=== PATIENT | male | born 1950 | race Caucasian/White ===

== ENCOUNTER 2022-02-25 14:58 | Emergency (ER) | payer OTHER, BC ==
[2022-02-25 16:04] VITALS: BP 115/77; PULSE 89; RESP 17; TEMP 98.3; BMI 20.7
[2022-02-25 19:06] LABS: BASO % 1.2 % (0-2.0); EOS % 1.3 % (0-4.5); HEMATOCRIT 40.9 % (35.4-49); LYMPH % 24.3 % (8-40); MCH 37.3 pg (25.7-33.7); MCHC 34.2 g/dl (32.0-35.9); MEAN CELL VOLUME 109.3 fl (80-96); MEAN PLT VOLUME 9.1 fl (7.5-11.1); MONO % 8.3 % (3.8-10.2); NEUT % 64.9 % (42.8-82.8); PLATELET COUNT 94 10^3/uL (134-434); RBC 3.74 M/mm3 (4.00-5.60); RDW 13.8 % (11.9-15.9); WHITE BLOOD COUNT 4.2 K/mm3 (4.0-10.0)
[2022-02-25 19:10] LABS: INR 0.97 (0.83-1.09); PROTHROMBIN TIME (PATIENT) 11.2 SEC (9.7-13.0)
[2022-02-25 19:13] LABS: ACTIVATED PTT 28.1 SECONDS (25.2-36.5)
[2022-02-25 19:25] LABS: ALBUMIN 3.9 g/dl (3.4-5.0); BLOOD UREA NITROGEN 13.7 mg/dL (7-18); CALCIUM 9.4 mg/dL (8.5-10.1); MAGNESIUM 1.9 mg/dL (1.8-2.4)
[2022-02-25 19:29] LABS: CREATININE 0.5 mg/dL (0.55-1.3)
[2022-02-25 19:30] LABS: BILIRUBIN,TOTAL 2.3 mg/dL (0.2-1); TOT PROT 6.8 g/dl (6.4-8.2)
[2022-02-25 20:46] LABS: ANISOCYTOSIS 1+; MACROCYTOSIS 2+
== END 2022-02-25 21:35 | disposition left against medical advice (07) ==
LOC: JER 14:58
DX: S09.90XA Unspecified injury of head, initial encounter (principal); W19.XXXA Unspecified fall, initial encounter
CPT/HCPCS: 36415; 70450-TC; 71045-TC-FY; 72125-TC; 80053; 83735; 84484; 85025; 85610; 85730; 93005; 93010; 99285-25

== ENCOUNTER 2022-03-01 15:19 | Inpatient (IN) | payer OTHER, BC ==
[2022-03-01 22:59] LABS: BASO % 1.4 % (0-2.0); EOS % 1.2 % (0-4.5); HEMATOCRIT 38.4 % (35.4-49); HEMOGLOBIN 13.3 GM/dL (11.7-16.9); LYMPH % 23.7 % (8-40); MCH 37.5 pg (25.7-33.7); MCHC 34.7 g/dl (32.0-35.9); MEAN CELL VOLUME 108.1 fl (80-96); MEAN PLT VOLUME 9.1 fl (7.5-11.1); MONO % 10.4 % (3.8-10.2); NEUT % 63.3 % (42.8-82.8); PLATELET COUNT 100 10^3/uL (134-434); RBC 3.55 M/mm3 (4.00-5.60); RDW 13.4 % (11.9-15.9); WHITE BLOOD COUNT 3.5 K/mm3 (4.0-10.0)
[2022-03-01 23:19] LABS: ANISOCYTOSIS 2+; MACROCYTOSIS 2+
[2022-03-01 23:24] LABS: CALCIUM 8.4 mg/dL (8.5-10.1)
[2022-03-01 23:25] LABS: ALBUMIN 3.5 g/dl (3.4-5.0); BLOOD UREA NITROGEN 12.8 mg/dL (7-18); MAGNESIUM 1.7 mg/dL (1.8-2.4)
[2022-03-01 23:28] LABS: CREATININE 0.4 mg/dL (0.55-1.3)
[2022-03-01 23:29] LABS: BILIRUBIN,TOTAL 1.9 mg/dL (0.2-1); TOT PROT 6.2 g/dl (6.4-8.2)
[2022-03-02] MEDS ORDERED: SODIUM CHLORIDE 1,000 ML IV SCH (00:45)
[2022-03-02] MEDS ORDERED: FOLIC ACID 1 MG TABLET (FP) PO ONE (01:40)
[2022-03-02] MEDS ORDERED: LORazepam 2 MG/ML SDV VIAL IVPUSH PRN (01:40)
[2022-03-02] MEDS ORDERED: MAGNESIUM 2GM/50ML STERILE WATER IVPB IVPB ONE (01:41)
[2022-03-02] MEDS ORDERED: POTASSIUM PHOSPHATE 30 MM in DEXTROSE 5%-WATER - 500 ML IVPB ONE (01:42)
[2022-03-02 01:51] LABS: EPI CELLS 3 /uL (0-25.1); HYALINE CASTS 2 /uL (0-3.1); PH,URINE 5.5 (5.0-8.0); URINE APPEARANCE TURBID; URINE BACTERIA 1437 /uL (0-1359); URINE BILIRUBIN 2+ (NEGATIVE); URINE COLOR ORANGE; URINE GLUCOSE (UA) NEGATIVE (NEGATIVE); URINE KETONE 2+ (NEGATIVE); URINE LEUK ESTERASE 1+ (NEGATIVE); URINE NITRITE POSITIVE (NEGATIVE); URINE PROTEIN 1+ (NEGATIVE); URINE WBC 304 /uL (0-25.8)
[2022-03-02 04:55] LABS: URINE RBC 175.8 /uL (0-23.9)
[2022-03-02] MEDS ORDERED: MAGNESIUM SULFATE IN WATER 2 GM/50 ML IVPB IVPB ONE (05:11)
[2022-03-02] MEDS ORDERED: FOLIC ACID 1 MG TABLET (FP) ONE (05:11)
[2022-03-02 05:18] LABS: YEAST NONE SEEN (NEGATIVE)
[2022-03-02 07:14] LABS: BASO % 1.1 % (0-2.0); EOS % 0.6 % (0-4.5); HEMATOCRIT 38.9 % (35.4-49); HEMOGLOBIN 13.4 GM/dL (11.7-16.9); LYMPH % 23.1 % (8-40); MCH 37.4 pg (25.7-33.7); MCHC 34.4 g/dl (32.0-35.9); MEAN CELL VOLUME 108.9 fl (80-96); NEUT % 63.2 % (42.8-82.8); PLATELET COUNT 101 10^3/uL (134-434); RBC 3.57 M/mm3 (4.00-5.60); RDW 13.5 % (11.9-15.9); WHITE BLOOD COUNT 4.2 K/mm3 (4.0-10.0)
[2022-03-02 07:23] LABS: CALCIUM 8.5 mg/dL (8.5-10.1)
[2022-03-02 07:24] LABS: ALBUMIN 3.4 g/dl (3.4-5.0); BLOOD UREA NITROGEN 13.3 mg/dL (7-18); MAGNESIUM 2.3 mg/dL (1.8-2.4)
[2022-03-02 07:27] LABS: CREATININE 0.5 mg/dL (0.55-1.3); PHOSPHOROUS 3.2 mg/dL (2.5-4.9)
[2022-03-02 07:28] LABS: BILIRUBIN,TOTAL 2.2 mg/dL (0.2-1)
[2022-03-02 07:29] LABS: TOT PROT 5.9 g/dl (6.4-8.2)
[2022-03-02] MEDS ORDERED: POTASSIUM CHLORIDE TABS 20 MEQ TABLET.ER (FP) PO ONE ×2 (07:32→08:08)
[2022-03-02 08:50] LABS: BILIRUBIN,DIRECT 0.9 mg/dL (0.0-0.2)
[2022-03-02] MEDS ORDERED: THIAMINE HCL 200 MG/2 ML VIAL IVPB SCH (10:00)
[2022-03-02] MEDS ORDERED: CEFTRIAXONE 1 GM in DEXTROSE 5%-WATER - 50 ML IVPB SCH (10:00)
[2022-03-02] MEDS: ENOXAPARIN NA (PORCINE) 40 MG/0.4 ML DISP.SYRIN SQ SCH (10:40)
[2022-03-02] MEDS: FOLIC ACID INJECTION - 1 MG, THIAMINE HCL 100 MG, MULTIVIT INJECTION ADULT 10 ML in SOD... IVPB ONE ×2 (10:41→10:42)
[2022-03-02] MEDS: TAMSULOSIN HCL 0.4 MG CAP PO SCH (10:43)
[2022-03-02] MEDS: MULTIVITAMINS (DAILY MVI) TABLET (FP) PO SCH (10:44)
[2022-03-03] MEDS: TAMSULOSIN HCL 0.4 MG CAP PO SCH (08:59)
[2022-03-03 09:05] LABS: EOS % 2.5 % (0-4.5); HEMATOCRIT 41.6 % (35.4-49); HEMOGLOBIN 14.2 GM/dL (11.7-16.9); LYMPH % 32.1 % (8-40); MCH 37.1 pg (25.7-33.7); MCHC 34.1 g/dl (32.0-35.9); MEAN PLT VOLUME 10.2 fl (7.5-11.1); NEUT % 52.4 % (42.8-82.8); PLATELET COUNT 94 10^3/uL (134-434); RBC 3.81 M/mm3 (4.00-5.60); RDW 13.2 % (11.9-15.9)
[2022-03-03] MEDS: ENOXAPARIN NA (PORCINE) 40 MG/0.4 ML DISP.SYRIN SQ SCH (09:12)
[2022-03-03] MEDS: THIAMINE HCL 100 MG TABLET (FP) PO SCH (09:12)
[2022-03-03] MEDS: MULTIVITAMINS (DAILY MVI) TABLET (FP) PO SCH (09:12)
[2022-03-03 09:26] LABS: CALCIUM 9.1 mg/dL (8.5-10.1)
[2022-03-03 09:27] LABS: ALBUMIN 3.6 g/dl (3.4-5.0); BLOOD UREA NITROGEN 11.5 mg/dL (7-18)
[2022-03-03 09:30] LABS: CREATININE 0.6 mg/dL (0.55-1.3); PHOSPHOROUS 2.9 mg/dL (2.5-4.9)
[2022-03-03 09:32] LABS: TOT PROT 6.3 g/dl (6.4-8.2)
[2022-03-03] MEDS ORDERED: TAMSULOSIN HCL 0.4 MG CAP PO ONE (13:38)
[2022-03-03] MEDS: SODIUM CHLORIDE 1,000 ML IV SCH ×2 (14:09→21:44)
[2022-03-03] MEDS ORDERED: POTASSIUM CHLORIDE TABS 20 MEQ TABLET.ER (FP) PO ONE (16:32)
[2022-03-04] MEDS ORDERED: TRIMETHOBENZAMIDE HCL 200MG/2ML INJ IM ONE (06:21)
[2022-03-04] MEDS: TAMSULOSIN HCL 0.4 MG CAP PO SCH (07:58)
[2022-03-04] MEDS: ENOXAPARIN NA (PORCINE) 40 MG/0.4 ML DISP.SYRIN SQ SCH (10:57)
[2022-03-04] MEDS: MULTIVITAMINS (DAILY MVI) TABLET (FP) PO SCH (11:55)
[2022-03-04] MEDS: THIAMINE HCL 100 MG TABLET (FP) PO SCH (11:55)
[2022-03-04 11:58] LABS: BASO % 0.8 % (0-2.0); EOS % 1.4 % (0-4.5); HEMATOCRIT 38.1 % (35.4-49); HEMOGLOBIN 13.1 GM/dL (11.7-16.9); LYMPH % 21.2 % (8-40); MCH 37.6 pg (25.7-33.7); MCHC 34.4 g/dl (32.0-35.9); MEAN CELL VOLUME 109.3 fl (80-96); MONO % 11.7 % (3.8-10.2); NEUT % 64.9 % (42.8-82.8); PLATELET COUNT 87 10^3/uL (134-434); RBC 3.48 M/mm3 (4.00-5.60); RDW 13.2 % (11.9-15.9); WHITE BLOOD COUNT 4.2 K/mm3 (4.0-10.0)
[2022-03-04 12:39] LABS: ALBUMIN 3.6 g/dl (3.4-5.0); BLOOD UREA NITROGEN 7.1 mg/dL (7-18); CALCIUM 8.8 mg/dL (8.5-10.1); MAGNESIUM 1.9 mg/dL (1.8-2.4)
[2022-03-04 12:43] LABS: BILIRUBIN,TOTAL 1.4 mg/dL (0.2-1); CREATININE 0.5 mg/dL (0.55-1.3); PHOSPHOROUS 2.8 mg/dL (2.5-4.9); TOT PROT 6.2 g/dl (6.4-8.2)
[2022-03-05] MEDS: TAMSULOSIN HCL 0.4 MG CAP PO SCH (08:30)
[2022-03-05] MEDS: MULTIVITAMINS (DAILY MVI) TABLET (FP) PO SCH (09:17)
[2022-03-05] MEDS: THIAMINE HCL 100 MG TABLET (FP) PO SCH (09:17)
[2022-03-05] MEDS: ENOXAPARIN NA (PORCINE) 40 MG/0.4 ML DISP.SYRIN SQ SCH (09:21)
[2022-03-05 12:38] VITALS: BMI 19.0
[2022-03-06 09:01] LABS: HEMATOCRIT 39.2 % (35.4-49); HEMOGLOBIN 13.2 GM/dL (11.7-16.9); MCH 36.7 pg (25.7-33.7); MCHC 33.7 g/dl (32.0-35.9); MEAN PLT VOLUME 10.1 fl (7.5-11.1); PLATELET COUNT 116 10^3/uL (134-434); RBC 3.59 M/mm3 (4.00-5.60); RDW 13.4 % (11.9-15.9); WHITE BLOOD COUNT 6.5 K/mm3 (4.0-10.0)
[2022-03-06] MEDS: MULTIVITAMINS (DAILY MVI) TABLET (FP) PO SCH (09:03)
[2022-03-06] MEDS: THIAMINE HCL 100 MG TABLET (FP) PO SCH (09:03)
[2022-03-06] MEDS: TAMSULOSIN HCL 0.4 MG CAP PO SCH (09:03)
[2022-03-06] MEDS: ENOXAPARIN NA (PORCINE) 40 MG/0.4 ML DISP.SYRIN SQ SCH (09:49)
[2022-03-06 10:49] LABS: ANISOCYTOSIS 2+; MACROCYTOSIS 2+
[2022-03-07 09:51] LABS: BASO % 0.9 % (0-2.0); EOS % 3.6 % (0-4.5); HEMATOCRIT 38.4 % (35.4-49); HEMOGLOBIN 13.5 GM/dL (11.7-16.9); LYMPH % 13.7 % (8-40); MCH 38.4 pg (25.7-33.7); MCHC 35.2 g/dl (32.0-35.9); MEAN CELL VOLUME 108.8 fl (80-96); MEAN PLT VOLUME 10.4 fl (7.5-11.1); MONO % 10.5 % (3.8-10.2); NEUT % 71.3 % (42.8-82.8); PLATELET COUNT 127 10^3/uL (134-434); RBC 3.53 M/mm3 (4.00-5.60); RDW 13.4 % (11.9-15.9); WHITE BLOOD COUNT 7.2 K/mm3 (4.0-10.0)
[2022-03-07 10:00] LABS: CALCIUM 9.5 mg/dL (8.5-10.1)
[2022-03-07 10:01] LABS: ALBUMIN 3.6 g/dl (3.4-5.0); BLOOD UREA NITROGEN 15.6 mg/dL (7-18); MAGNESIUM 1.9 mg/dL (1.8-2.4)
[2022-03-07 10:03] LABS: PHOSPHOROUS 4.1 mg/dL (2.5-4.9)
[2022-03-07 10:04] LABS: BILIRUBIN,TOTAL 1.1 mg/dL (0.2-1); CREATININE 0.8 mg/dL (0.55-1.3); TOT PROT 6.7 g/dl (6.4-8.2)
[2022-03-07] MEDS: MULTIVITAMINS (DAILY MVI) TABLET (FP) PO SCH (10:12)
[2022-03-07] MEDS: THIAMINE HCL 100 MG TABLET (FP) PO SCH (10:12)
[2022-03-07] MEDS: TAMSULOSIN HCL 0.4 MG CAP PO SCH (10:12)
[2022-03-08] MEDS: THIAMINE HCL 100 MG TABLET (FP) PO SCH (09:34)
[2022-03-08] MEDS: MULTIVITAMINS (DAILY MVI) TABLET (FP) PO SCH (09:34)
[2022-03-08] MEDS: TAMSULOSIN HCL 0.4 MG CAP PO SCH (09:34)
[2022-03-08 10:16] LABS: EOS % 2.7 % (0-4.5); HEMATOCRIT 34.9 % (35.4-49); HEMOGLOBIN 12.2 GM/dL (11.7-16.9); LYMPH % 12.3 % (8-40); MCH 37.7 pg (25.7-33.7); MCHC 34.9 g/dl (32.0-35.9); MEAN CELL VOLUME 107.8 fl (80-96); MEAN PLT VOLUME 9.8 fl (7.5-11.1); MONO % 12.8 % (3.8-10.2); NEUT % 71.2 % (42.8-82.8); PLATELET COUNT 123 10^3/uL (134-434); RBC 3.23 M/mm3 (4.00-5.60); RDW 13.1 % (11.9-15.9); WHITE BLOOD COUNT 7.3 K/mm3 (4.0-10.0)
[2022-03-08 10:53] LABS: ALBUMIN 3.2 g/dl (3.4-5.0); CALCIUM 8.7 mg/dL (8.5-10.1); MAGNESIUM 2.2 mg/dL (1.8-2.4)
[2022-03-08 10:55] LABS: CREATININE 0.6 mg/dL (0.55-1.3)
[2022-03-08 10:56] LABS: PHOSPHOROUS 3.5 mg/dL (2.5-4.9)
[2022-03-08 10:57] LABS: BILIRUBIN,TOTAL 1.1 mg/dL (0.2-1); TOT PROT 5.8 g/dl (6.4-8.2)
[2022-03-08] MEDS ORDERED: ONDANSETRON 4 MG/2 ML VIAL IVPUSH PRN ×2 (11:23→12:42)
[2022-03-08] MEDS ORDERED: PROMETHAZINE HCL 25 MG/1 ML VIAL IVPUSH PRN ×2 (11:23→12:42)
[2022-03-08] MEDS ORDERED: LACTATED RINGERS SOLUTION 1,000 ML IV SCH (11:30)
[2022-03-08] MEDS ORDERED: PROPOFOL 20 ML ONE (11:36)
[2022-03-08] MEDS ORDERED: MIDAZOLAM HCL 2 MG/2 ML SINGLE DOSE VIAL ONE (11:36)
[2022-03-08] MEDS ORDERED: GLYCOPYRROLATE 0.2 MG/1 ML VIAL ONE (11:36)
[2022-03-08] MEDS ORDERED: ceFAZolin SODIUM 1 GM VIAL ONE (11:37)
[2022-03-08] MEDS ORDERED: LIDOCAINE HCL/PF 2% SDV 5ML VIAL ONE (11:37)
[2022-03-08] MEDS ORDERED: SODIUM CHLORIDE 0.9% P/F 10 ML VIAL IJ ONE (11:37)
[2022-03-08] MEDS ORDERED: ceFAZolin SODIUM 1 GM VIAL IVPB ONE (11:56)
[2022-03-08] MEDS ORDERED: DEXAMETHASONE SOD PHOSPHATE 4 MG/1 ML VIAL ONE (12:00)
[2022-03-08] MEDS ORDERED: ONDANSETRON 4 MG/2 ML VIAL ONE (12:00)
[2022-03-08] MEDS: LACTATED RINGERS SOLUTION 1,000 ML IV SCH (13:50)
[2022-03-09 05:49] VITALS: RESP 18
[2022-03-09] MEDS: TAMSULOSIN HCL 0.4 MG CAP PO SCH (09:28)
[2022-03-09] MEDS: MULTIVITAMINS (DAILY MVI) TABLET (FP) PO SCH (09:28)
[2022-03-09] MEDS: THIAMINE HCL 100 MG TABLET (FP) PO SCH (09:28)
[2022-03-09 10:01] LABS: BASO % 0.6 % (0-2.0); EOS % 2.4 % (0-4.5); HEMATOCRIT 35.1 % (35.4-49); HEMOGLOBIN 11.6 GM/dL (11.7-16.9); LYMPH % 13.5 % (8-40); MCH 36.5 pg (25.7-33.7); MCHC 33.2 g/dl (32.0-35.9); MEAN CELL VOLUME 109.8 fl (80-96); MEAN PLT VOLUME 9.6 fl (7.5-11.1); MONO % 13.4 % (3.8-10.2); NEUT % 70.1 % (42.8-82.8); PLATELET COUNT 154 10^3/uL (134-434); RBC 3.19 M/mm3 (4.00-5.60); RDW 13.2 % (11.9-15.9)
[2022-03-09 10:15] LABS: ALBUMIN 2.9 g/dl (3.4-5.0); CALCIUM 8.5 mg/dL (8.5-10.1); MAGNESIUM 2.1 mg/dL (1.8-2.4)
[2022-03-09 10:16] LABS: BLOOD UREA NITROGEN 11.9 mg/dL (7-18)
[2022-03-09 10:18] LABS: CREATININE 0.7 mg/dL (0.55-1.3); PHOSPHOROUS 2.7 mg/dL (2.5-4.9)
[2022-03-09 10:20] LABS: BILIRUBIN,TOTAL 0.7 mg/dL (0.2-1); TOT PROT 5.6 g/dl (6.4-8.2)
[2022-03-09 11:20] LABS: ANISOCYTOSIS 2+; MACROCYTOSIS 0
[2022-03-09] MEDS: LACTATED RINGERS SOLUTION 1,000 ML IV SCH ×2 (16:52→22:32)
[2022-03-10] MEDS: LACTATED RINGERS SOLUTION 1,000 ML IV SCH ×2 (06:24→23:08)
[2022-03-10] MEDS: TAMSULOSIN HCL 0.4 MG CAP PO SCH (09:25)
[2022-03-10] MEDS: THIAMINE HCL 100 MG TABLET (FP) PO SCH (09:25)
[2022-03-10] MEDS: MULTIVITAMINS (DAILY MVI) TABLET (FP) PO SCH (09:25)
[2022-03-10 15:40] LABS: BASO % 1.1 % (0-2.0); EOS % 2.4 % (0-4.5); HEMATOCRIT 35.4 % (35.4-49); LYMPH % 14.4 % (8-40); MCH 37.1 pg (25.7-33.7); MCHC 33.9 g/dl (32.0-35.9); MEAN CELL VOLUME 109.5 fl (80-96); MEAN PLT VOLUME 9.3 fl (7.5-11.1); MONO % 13.7 % (3.8-10.2); NEUT % 68.4 % (42.8-82.8); PLATELET COUNT 174 10^3/uL (134-434); RBC 3.23 M/mm3 (4.00-5.60); RDW 13.4 % (11.9-15.9); WHITE BLOOD COUNT 6.2 K/mm3 (4.0-10.0)
[2022-03-10 16:09] LABS: ALBUMIN 3.2 g/dl (3.4-5.0); BLOOD UREA NITROGEN 9.1 mg/dL (7-18); MAGNESIUM 1.9 mg/dL (1.8-2.4)
[2022-03-10 16:12] LABS: CREATININE 0.8 mg/dL (0.55-1.3); PHOSPHOROUS 3.1 mg/dL (2.5-4.9)
[2022-03-10 16:14] LABS: BILIRUBIN,TOTAL 0.5 mg/dL (0.2-1)
[2022-03-11] MEDS: LACTATED RINGERS SOLUTION 1,000 ML IV SCH (07:26)
[2022-03-11] MEDS: TAMSULOSIN HCL 0.4 MG CAP PO SCH (08:27)
[2022-03-11] MEDS: THIAMINE HCL 100 MG TABLET (FP) PO SCH (10:21)
[2022-03-11] MEDS: MULTIVITAMINS (DAILY MVI) TABLET (FP) PO SCH (10:21)
[2022-03-11 11:02] LABS: BASO % 1.5 % (0-2.0); EOS % 2.7 % (0-4.5); HEMATOCRIT 34.3 % (35.4-49); HEMOGLOBIN 11.7 GM/dL (11.7-16.9); LYMPH % 19.4 % (8-40); MCH 36.9 pg (25.7-33.7); MEAN CELL VOLUME 108.3 fl (80-96); MEAN PLT VOLUME 9.3 fl (7.5-11.1); MONO % 14.5 % (3.8-10.2); NEUT % 61.9 % (42.8-82.8); PLATELET COUNT 179 10^3/uL (134-434); RBC 3.17 M/mm3 (4.00-5.60); RDW 13.2 % (11.9-15.9); WHITE BLOOD COUNT 5.7 K/mm3 (4.0-10.0)
[2022-03-11 11:29] LABS: CALCIUM 8.8 mg/dL (8.5-10.1)
[2022-03-11 11:30] LABS: ALBUMIN 2.8 g/dl (3.4-5.0); BLOOD UREA NITROGEN 9.8 mg/dL (7-18); MAGNESIUM 1.9 mg/dL (1.8-2.4)
[2022-03-11 11:32] LABS: PHOSPHOROUS 3.7 mg/dL (2.5-4.9)
[2022-03-11 11:33] LABS: CREATININE 0.5 mg/dL (0.55-1.3)
[2022-03-11 11:34] LABS: BILIRUBIN,TOTAL 0.5 mg/dL (0.2-1); TOT PROT 5.4 g/dl (6.4-8.2)
[2022-03-11 13:56] VITALS: BP 101/64; PULSE 72; TEMP 97.9
== END 2022-03-11 17:15 | disposition home or self-care (01) | DRG 717 ==
LOC: JER 15:19 → JERBED 18:46 → J6S 03-02 08:55 → OBSVTOIN 03-03 14:05
PROVIDERS: ADMIT Internal Medicine; ATTEND Internal Medicine
PROC: 0TCB8ZZ Extirpation of Matter from Bladder, Via Natural or Artificial Opening Endoscopic (ICD-10-PCS; 2022-03-08)
PROC: 0TBB8ZZ Excision of Bladder, Via Natural or Artificial Opening Endoscopic (ICD-10-PCS; principal; 2022-03-08 11:00)
DX: N40.1 Benign prostatic hyperplasia with lower urinary tract symptoms (principal); Z68.1 Body mass index [BMI] 19.9 or less, adult; F10.20 Alcohol dependence, uncomplicated; R63.4 Abnormal weight loss; R74.01 Elevation of levels of liver transaminase levels; R29.6 Repeated falls; R31.0 Gross hematuria; R33.9 Retention of urine, unspecified; E53.8 Deficiency of other specified B group vitamins; R53.1 Weakness; N32.89 Other specified disorders of bladder
CPT/HCPCS: 0241U-QW; 36415; 70450-TC; 71045-TC-FY; 72125-TC; 72170-TC-FY; 74178-TC; 76705-TC; 80053; 80307; 81003; 82248; 82607; 83735; 84100; 85025; 87040; 87086; 88307-TC; 93005; 93010; 94760; 97116-GP; 97162-GP; 99285-25; G0378; Q9967

== ENCOUNTER 2022-04-16 17:47 | Emergency (ER) | payer OTHER, BC ==
[2022-04-16 18:39] VITALS: BP 108/61; PULSE 79; RESP 18; TEMP 98.1; BMI 19.2
[2022-04-16] MEDS ORDERED: HALOPERIDOL LACTATE 5 MG/ML IM ONE ×2 (19:23→19:38)
[2022-04-16] MEDS ORDERED: MIDAZOLAM HCL 2 MG/2 ML SINGLE DOSE VIAL IVPUSH ONE ×2 (19:31→20:03)
[2022-04-16] MEDS ORDERED: MIDAZOLAM HCL 2 MG/2 ML SINGLE DOSE VIAL ONE ×2 (19:37→20:03)
[2022-04-16 19:48] LABS: BASO % 1.1 % (0-2.0); EOS % 2.5 % (0-4.5); HEMOGLOBIN 14.3 GM/dL (11.7-16.9); LYMPH % 40.2 % (8-40); MCH 35.3 pg (25.7-33.7); MCHC 33.2 g/dl (32.0-35.9); MEAN CELL VOLUME 106.3 fl (80-96); MEAN PLT VOLUME 9.2 fl (7.5-11.1); MONO % 9.2 % (3.8-10.2); PLATELET COUNT 112 10^3/uL (134-434); RBC 4.04 M/mm3 (4.00-5.60); RDW 15.4 % (11.9-15.9); WHITE BLOOD COUNT 4.3 K/mm3 (4.0-10.0)
[2022-04-16 20:07] LABS: CALCIUM 8.7 mg/dL (8.5-10.1)
[2022-04-16 20:08] LABS: ALBUMIN 3.6 g/dl (3.4-5.0); BLOOD UREA NITROGEN 11.1 mg/dL (7-18)
[2022-04-16 20:11] LABS: CREATININE 0.6 mg/dL (0.55-1.3)
[2022-04-16 20:12] LABS: BILIRUBIN,TOTAL 1.7 mg/dL (0.2-1)
[2022-04-16 20:13] LABS: TOT PROT 6.6 g/dl (6.4-8.2)
[2022-04-16] MEDS ORDERED: MAGNESIUM SULF 50% (8.12 MEQ/2 ML-1 GM VIAL) IVPB ONE (21:17)
[2022-04-16] MEDS ORDERED: POTASSIUM CHLORIDE TABS 20 MEQ TABLET.ER (FP) PO ONE ×3 (21:18→23:23)
[2022-04-16 21:21] LABS: ANISOCYTOSIS 0; MACROCYTOSIS 0
[2022-04-16 22:01] LABS: MAGNESIUM 1.9 mg/dL (1.8-2.4)
== END 2022-04-17 02:09 | disposition home or self-care (01) ==
LOC: JER 17:47
PROC: 3E023GC Introduction of Other Therapeutic Substance into Muscle, Percutaneous Approach (ICD-10-PCS; principal; 2022-04-16)
PROC: 3E033GC Introduction of Other Therapeutic Substance into Peripheral Vein, Percutaneous Approach (ICD-10-PCS; 2022-04-16)
PROC: 3E033NZ Introduction of Analgesics, Hypnotics, Sedatives into Peripheral Vein, Percutaneous Approach (ICD-10-PCS; 2022-04-16)
PROC: 3E033NZ Introduction of Analgesics, Hypnotics, Sedatives into Peripheral Vein, Percutaneous Approach (ICD-10-PCS; 2022-04-16)
DX: F10.920 Alcohol use, unspecified with intoxication, uncomplicated (principal)
CPT/HCPCS: 36415; 70450-TC; 71046-TC-FY; 72125-TC; 80053; 80307; 83735; 85025; 93005; 93010; 99285-25